=== PATIENT | male | born 1960 | race Caucasian/White ===

== ENCOUNTER → 2017-03-07 | Outpatient (CLI) | payer BC ==
[~2017-03-07] MED LIST: ACETAMINOPHEN 325 MG TAB As Ordered ONE; LIDOCAINE 1% MDV 20ML VIAL As Ordered ONE
--- NOTE | 2017-03-07 10:53 | REP ---
Chest x-ray: Single PA view. History: The patient is immediately status post CT guided needle biopsy for right base lung nodule. No comparison chest x-ray. Findings: There is a small post biopsy right sided pneumothorax, 5-10%. The nodule is seen adjacent to the right hemidiaphragm. There is an eventration pattern in the right hemidiaphragm. An old healed rib fracture is noted on the right. The left lung is clear. Impression: Small post biopsy right sided pneumothorax. Follow-up radiograph is being arranged. Signed by Fernando Eastman MD 03/07/2017 05:12 P
--- NOTE | 2017-03-07 12:17 | REP ---
PA CHEST X-RAY: HISTORY: Single PA view for followup right-sided pneumothorax. FINDINGS: In comparison with the film done at 10:03 a.m., 2 hours ago, a small 5-10% right-sided pneumothorax is again seen. This may be very slightly larger as some pleural air is now visible at the base. Otherwise unchanged. An additional follow-up chest x-ray will be obtained at 2:00 p.m. Signed by Fernando Eastman MD 03/07/2017 05:12 P
--- NOTE | 2017-03-07 15:00 | REP ---
CHEST X-RAY: SINGLE VIEW HISTORY: Right-sided pneumothorax post biopsy. FINDINGS: Followup chest x-ray, 1400 hours again demonstrates a very small right-sided pneumothorax, stable since the prior study. The patient is essentially asymptomatic and will be released. IMPRESSION: Stable small right-sided pneumothorax. Signed by Fernando Eastman MD 03/07/2017 05:13 P
--- NOTE | 2017-03-07 15:51 | REP ---
CT GUIDED RIGHT MIDDLE LOBE LUNG BIOPSY: The procedure was performed under the direct supervision of Dr. Eastman. The patient has a history of a 2.2 x 2.1 cm pulmonary nodule in the lateral segment of the right middle lobe seen on a previous CT scan from [facility] performed on 02/05/2017. The risks and benefits of the procedure were explained to the patient and informed consent was obtained. The right middle lobe lung nodule was localized using CT guidance. The skin was prepped and draped in a sterile fashion. 1% Xylocaine was used as a local anesthetic. Using CT guidance a 19/20-gauge coaxial needle biopsy system was inserted and advanced into the nodule. Four core biopsy samples were obtained and sent to the lab. Images obtained after the biopsy demonstrate a right pneumothorax. As much air as possible was aspirated from the pleural space. At this time, the patient had minimal right shoulder pain which was likely due to position on the table. His 02 saturations were 99% on room air. The patient was placed on 2 liters of 02 via nasal cannula. His 02 saturations were then 100% on oxygen. A chest x-ray performed immediately after the procedure demonstrates a small post biopsy right-sided pneumothorax. Images obtained two hours later show that the pneumothorax may have increased very slightly. Another chest x-ray was performed two hours later and demonstrates a small stable right-sided pneumothorax. The patient's vital signs were stable. His 02 saturations were at baseline from when he arrived in the department. The patient was then discharged home. Reviewed by TAHIR Hoskins 03/07/2017 03:56 PEdited and Signed by Fernando Eastman MD 03/07/2017 05:14 P
== END ==
LOC: M RADPRO 07:50
PROVIDERS: ATTEND Internal Medicine Pulmonary Disease
DX: J84.10 Pulmonary fibrosis, unspecified (principal); J95.811 Postprocedural pneumothorax; Z87.891 Personal history of nicotine dependence; Z79.899 Other long term (current) drug therapy

== ENCOUNTER → 2017-03-17 | Outpatient (CLI) | payer BC ==
[2017-03-17 20:14] LABS: BASO # 0.1 K/mm3 (0.0-0.2); BASO % 0.9 % (0.0-1.0); EOS # 0.2 K/mm3 (0.0-0.50); EOS % 2.8 % (0.0-3.0); LARGE UNSTAINED CELL # 0.2 K/mm3 (0.0-0.4); LARGE UNSTAINED CELL % 2.1 % (0.0-4.0); LYMPH # 2.9 K/mm3 (1.5-4.5); LYMPH % 29.9 % (24.0-44.0); MEAN CORPUSCULAR HEMOGLOBIN 31.3 pg (27.0-33.0); MEAN CORPUSCULAR HGB CONC 33.7 g/dl (32.0-36.5); MEAN CORPUSCULAR VOLUME 92.8 fl (80.0-96.0); MONO # 0.6 K/mm3 (0.0-0.8); MONO % 6.9 % (0.0-5.0); NEUTROPHILS # 5.2 K/mm3 (1.8-7.7); NEUTROPHILS % 57.4 % (36.0-66.0); PLATELET COUNT, AUTOMATED 218 k/mm3 (150-450); RED CELL DISTRIBUTION WIDTH 13.6 % (11.5-14.5)
[2017-03-17 20:19] LABS: ALBUMIN 3.9 GM/DL (3.2-5.2); ALBUMIN/GLOBULIN RATIO 1.15 (1.00-1.93); ALKALINE PHOSPHATASE 81 U/L (45-117); ALT/SGPT 26 U/L (12-78); AST/SGOT 14 U/L (15-37); BILIRUBIN,DIRECT 0.1 MG/DL (0.0-0.2); BILIRUBIN,TOTAL 0.4 MG/DL (0.2-1.0); CALCIUM LEVEL 8.8 MG/DL (8.5-10.1); CREATININE FOR GFR 1.07 MG/DL (0.70-1.30); GLOMERULAR FILTRATION RATE > 60.0 (>56); TOTAL PROTEIN 7.3 GM/DL (6.4-8.2)
[2017-03-17 21:24] LABS: ERYTHROCYTE SEDIMENTATION RATE 8 mm/hr (0-20)
[2017-03-22 18:14] LABS: BLASTOMYCES ANTIBODY LEVEL Negative (Neg:<1:1); CRYPTOCOCCUS ANTIGEN SER Negative (Negative); SJOGREN'S ANTI SS-A <0.2 AI (0.0-0.9); SJOGREN'S ANTI SS-B <0.2 AI (0.0-0.9); VITAMIN D 1,25 DIHYDROXY 41.3 pg/mL (19.9-79.3)
[2017-03-28 14:24] LABS: COCCIDIOMYCOSIS ANTIBODY NEGATIVE (NEGATIVE)
== END ==
LOC: M SMT 14:06
PROVIDERS: ATTEND Internal Medicine Pulmonary Disease
DX: R91.8 Other nonspecific abnormal finding of lung field (principal)